=== PATIENT | female | born 1940 | race Caucasian/White ===

== ENCOUNTER 2017-10-08 06:07 | Day surgery (SDC) | payer BC, MEDICARE ==
[2017-10-08] VITALS (11 sets, daily range): BP systolic 128–173; BP diastolic 61–84; PULSE 57–88; TEMP 97.2
[~2017-10-08] VITALS: Ht 167.6 cm; Wt 83.1 kg
[2017-10-08 06:53] LABS: HEMATOCRIT 40.1 % (37.0-47.0); HEMOGLOBIN 13.1 g/dl (12.5-16.0); MEAN CELL VOLUME 91 fl (80.0-100.0); MEAN CORPUSCULAR HEMOGLOBIN 30 pg (27.0-31.0); MEAN CORPUSCULAR HGB CONC 33 g/dl (33.0-37.0); MEAN PLATELET VOLUME 11.2 fl (7.4-10.4); PLATELET COUNT 290 K/mm3 (130-400); RED BLOOD COUNT 4.42 M/mm3 (4.10-5.30); WHITE BLOOD COUNT 7.1 K/mm3 (4.8-10.8)
[2017-10-08 06:58] LABS: INR 1.1 (0.8-3.0); PROTHROMBIN TIME 12.3 SECONDS (9.7-12.8)
[2017-10-08 07:03] LABS: CALCIUM 9.8 mg/dL (8.4-10.2); CREATININE, serum 0.84 mg/dL (0.52-1.25); POTASSIUM 3.3 mmol/L (3.4-5.0)
[2017-10-08] MEDS ORDERED: ASPIRIN E.C. 8181 MG PO (07:12)
[2017-10-08] MEDS ORDERED: HCTZ 25MG TAB25 MG PO (07:13)
[2017-10-08] MEDS ORDERED: OS-CAL 500 + D1 TAB PO (07:14)
[2017-10-08] MEDS ORDERED: NORCO 325 MG-7.1 TAB PO (07:21)
[2017-10-08] MEDS ORDERED: ADVIL200 MG PO (07:22)
[2017-10-08] MEDS ORDERED: MELAT3MGTAB PO (07:22)
[2017-10-08] MEDS ORDERED: VITAMIN D 50,1.25 MG PO (07:23)
== END 2017-10-08 12:40 | disposition home or self-care (01) ==
LOC: COL.CAR 06:07
PROVIDERS: Internal Medicine Interventional Cardiology
DX: R94.39 Abnormal result of other cardiovascular function study (principal); R00.1 Bradycardia, unspecified; I10 Essential (primary) hypertension; Z82.49 Family history of ischemic heart disease and other diseases of the circulatory system
CPT/HCPCS: C1769; C1887; C1894; J2250; J3010; Q9967